=== PATIENT | male | born 1960 | race Caucasian/White ===

== ENCOUNTER 2019-01-10 14:05 | Day surgery (SDC) | payer OTHER ==
[2019-01-10] MEDS ORDERED: POLYMYXIN/BACITRACIN 1L IRRIG (16:27)
[2019-01-10] MEDS ORDERED: MEPERIDINE 100 MG INJ (17:10)
[2019-01-10] MEDS ORDERED: LIDOCAINE 2% (SDV) 5 ML INJ (17:10)
[2019-01-10] MEDS ORDERED: PROPOFOL 100 ML (17:10)
[2019-01-10] MEDS ORDERED: CEFAZOLIN 1 GM INJ (17:10)
[2019-01-10] MEDS ORDERED: ONDANSETRON 4 MG INJ (17:11)
[2019-01-10] MEDS: BUPIVACAINE 0.5% (SDV) 30 ML INJ (17:48)
[2019-01-10] MEDS ORDERED: EPHEDrine 25 MG/5 ML SYG IV (18:00)
[2019-01-10] MEDS ORDERED: LABETALOL HCL 20MG INJ IV (18:00)
[2019-01-10] MEDS ORDERED: DIPHENHYDRAMINE 50 MG INJ IV (18:00)
[2019-01-10] MEDS ORDERED: MEPERIDINE 25 MG INJ IV (18:00)
[2019-01-10] MEDS ORDERED: FENTAnyl 50 MCG/ML VIAL IV ×3 (18:00)
[2019-01-10] MEDS ORDERED: ONDANSETRON 4 MG INJ IV (18:00)
[2019-01-10] MEDS ORDERED: hydrALAzine 20 MG INJ IV (18:00)
[2019-01-10] MEDS ORDERED: METOCLOPRAMIDE 10 MG INJ IV (18:00)
[2019-01-10] MEDS ORDERED: MIDAZOLAM 1 MG/ML 2 ML INJ IV (18:00)
[2019-01-10] MEDS ORDERED: HYDROmorphONE 1 MG/5 ML IV SYRINGE IV ×3 (18:00)
[2019-01-10] MEDS ORDERED: EPHEDrine 25 MG/5 ML SYG (18:56)
== END 2019-01-10 20:42 | disposition home or self-care (01) ==
LOC: SDS 14:05
DX: M21.611 Bunion of right foot (principal); M20.41 Other hammer toe(s) (acquired), right foot; D16.31 Benign neoplasm of short bones of right lower limb; M13.871 Other specified arthritis, right ankle and foot
CPT/HCPCS: 28285; 73630; 88305; 88311